=== PATIENT | female | born 1960 | race American Indian/Alaskan Native ===

== ENCOUNTER 2016-09-18 16:58 | Inpatient (IN) | payer MEDICAID ==
--- NOTE | 2016-09-18 17:03 | Emergency Department Report ---
ED Neuro Deficit HPI - General Stated Complaint: POSS STROKE Time Seen by Provider: 09/18/16 16:59 Source: EMS Mode of arrival: Stretcher - History of Present Illness Initial Comments: She is a 56-year-old female with history of hypertension, diabetes, prior CVA? With no known deficits at baseline presenting today because of apparent new stroke symptoms 25 minutes prior to arrival (4:25pm). 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 The fingerstick in the field was in the 90s. It is primarily complaining about a severe headache. - Related Data Home Medications: Home Medications Medication Instructions Recorded Confirmed Last Taken Simvastatin 20 mg PO QDAY 07/15/13 09/21/14 08/02/13 ALBUTEROL NEB's [Proventil 0.083% 1 mg PO BID 08/03/13 09/21/14 08/02/13 NEBS] LORazepam [Ativan] 0.5 mg PO BID 09/23/14 09/23/14 Unknown Previous Rx's Medication Instructions Recorded Last Taken Type Aspirin [Aspirin TAB] 325 mg PO QDAY #30 tablet 09/27/14 Unknown Rx Butalb/Acetamin/Caff 50-325-40 2 tab PO Q4H PRN #30 tablet 09/27/14 Unknown Rx [Fioricet] Divalproex ER [Depakote ER] 500 mg PO QDAY #30 tablet 09/27/14 Unknown Rx predniSONE [Deltasone] 20 mg PO QDAY #5 tab 08/09/15 Unknown Rx traMADol [Ultram] 50 mg PO Q6HR PRN #20 tablet 08/09/15 Unknown Rx Allergies/Adverse Reactions: Allergies Allergy/AdvReac Type Severity Reaction Status Date / Time iodine Allergy Hives Verified 08/03/13 11:52 azithromycin AdvReac Severe ABDOMINAL Verified 08/03/13 11:52 [From Zithromax Z-Mohit] PAIN ED Review of Systems ROS: Stated complaint: POSS STROKE Other details as noted in HPI Comment: All other systems reviewed and negative Constitutional: denies: chills, fever Respiratory: denies: cough Cardiovascular: denies: chest pain Gastrointestinal: denies: abdominal pain, vomiting Genitourinary: denies: urgency, dysuria Skin: denies: rash Psychiatric: denies: anxiety ED Past Medical Hx - Past Medical History Hx Hypertension: Yes Hx Congestive Heart Failure: Yes Hx Diabetes: No ("border-line diabetic") Hx GERD: Yes Hx Sickle Cell Disease: No Hx Arthritis: Yes Hx Asthma: Yes Hx COPD: No Hx HIV: No - Surgical History Hx Coronary Stent: Yes (pt think she has one) Hx Appendectomy: Yes Additional Surgical History: Right pulmonary lobectomy October 2013 - Social History Smoking Status: Former Smoker Substance Use Type: None - Medications Home Medications: Home Medications Medication Instructions Recorded Confirmed Last Taken Type Simvastatin 20 mg PO QDAY 07/15/13 09/21/14 08/02/13 History ALBUTEROL NEB's [Proventil 0.083% 1 mg PO BID 08/03/13 09/21/14 08/02/13 History NEBS] LORazepam [Ativan] 0.5 mg PO BID 09/23/14 09/23/14 Unknown History Aspirin [Aspirin TAB] 325 mg PO QDAY #30 tablet 09/27/14 Unknown Rx Butalb/Acetamin/Caff 50-325-40 2 tab PO Q4H PRN #30 tablet 09/27/14 Unknown Rx [Fioricet] Divalproex ER [Depakote ER] 500 mg PO QDAY #30 tablet 09/27/14 Unknown Rx predniSONE [Deltasone] 20 mg PO QDAY #5 tab 08/09/15 Unknown Rx traMADol [Ultram] 50 mg PO Q6HR PRN #20 tablet 08/09/15 Unknown Rx ED Neuro Physical Exam - General General appearance: alert Suspected Stroke: Yes - Head Head exam: Present: atraumatic - Eye Eye exam: Present: normal appearance Pupils: Present: normal accommodation - ENT ENT exam: Present: normal exam - Neck Neck exam: Present: normal inspection - Respiratory Respiratory exam: Present: normal lung sounds bilaterally. Absent: respiratory distress, wheezes - Cardiovascular Cardiovascular Exam: Present: regular rate, normal rhythm - GI/Abdominal GI/Abdominal exam: Present: soft. Absent: distended, tenderness - Neurological Exam Neurological exam: Present: alert, altered - NIHSS Assessment Interval: Baseline 1a. Level of Consciousness: alert 1b. LOC Questions: answers correctly 1c. LOC Commands: performs tasks correctly 2. Best Gaze: normal 3. Visual: no visual loss 4. Facial Palsy: normal symmetrical movement 5b. Motor Arm Right: no drift 5a. Motor Arm Left: no gravity effort 6a. Motor Leg Left: no gravity effort 6b. Motor Leg Right: no drift 7. Limb Ataxia: absent 8. Sensory: mild/moderate sensory loss 9. Best Language: no aphasia 10. Dysarthria: mild/moderate dysarthria 11. Extinction/Inattention: no abnormality Total Score: 8 Stroke Severity: Moderate Stroke - Psychiatric Psychiatric exam: Present: agitated, anxious - Skin Skin exam: Present: intact ED Course Vital Signs 09/18/16 09/18/16 09/18/16 16:55 17:12 17:30 Pulse Rate Respiratory 22 20 Rate Blood Pressure O2 Sat by Pulse 100 100 Oximetry 09/18/16 09/18/16 09/18/16 18:00 18:01 19:01 Pulse Rate 95 H Respiratory 18 11 L Rate Blood Pressure 149/87 156/83 O2 Sat by Pulse 99 98 Oximetry 09/18/16 09/18/16 19:21 19:57 Pulse Rate 97 H Respiratory 15 18 Rate Blood Pressure 155/82 O2 Sat by Pulse 99 Oximetry - Reevaluation(s) Reevaluation #1: 09/18/16 17:52 I went bed side and reassessed the patient. Sling to the patient that the possibilities here are that she may have a complex migraine or she may have a stroke. Given that it is hard to tell at this point which one it is we want to offer her TPA. I explained to her the benefits which could be that she may have improved neurological status a few months on the line if she receives tPA and I explained to her the of TPA which was primarily a very small chance of a intracranial hemorrhage. Patient states understanding and does not want it. Patient also agrees that these symptoms are similar to her prior presentation. She states that her son had of a stroke alert of the past her birthday at this time of year in the past. Reevaluation #2: 09/18/16 20:08 Dr. Armstrong had requested a CTA of the head and neck. Patient has poor vascular access and this does not have a line is good enough for a CTA. I attempted bedside insertion of an ultrasound guided IV 20-gauge both right and left antecubital fossas, vein is to deep as even cannulation of the vein puts the IVP had a 60 angle from the skin. Unable to secure despite multiple attempts. Pugh is also allergic to contrast dye with prior hives. We will defer CTA at this time as a central line appears to be too invasive considering the risks and benefits. Called Dr. Armstrong and left message at [phone] 09/18/16 20:12 - Consultations Consultation #1: 09/18/16 17:[address] Ayesha Armstrong, discussed patient's presentation and exam. I explained to her the information in the prior records. Dr. Armstrong states patient does not want tPA after having a discussion with the patient. 09/18/16 17:35 Consultation #2: 09/18/16 20:[address] Roberto Mckeon, spleen the history, physical, workup. I explained that there are difficulties with doing a CTA which included the patient being allergic to contrast which we can pretreat but also the patient has poor access and were unable to secure a large enough IV albumin with ultrasound guidance and I would have to insert a central line to be able to get the CTA. We both agreed that this was not necessary given that the patient has elected not to have tPA. - Lab Data Result diagrams: 09/18/16 17:13 09/18/16 17:13 Lab Results 09/18/16 09/18/16 09/18/16 Range/Units 17:13 17:13 17:13 WBC 9.1 (4.5-11.0) K/mm3 RBC 4.73 (3.65-5.03) M/mm3 Hgb 13.2 (10.1-14.3) gm/dl Hct 39.5 (30.3-42.9) % MCV 84 (79-97) fl MCH 28 (28-32) pg MCHC 33 (30-34) % RDW 13.4 (13.2-15.2) % Plt Count 277 (140-440) K/mm3 Lymph % (Auto) 22.2 (13.4-35.0) % [place] % (Auto) 7.7 H (0.0-7.3) % Eos % (Auto) 1.4 (0.0-4.3) % Baso % (Auto) 0.3 (0.0-1.8) % Lymph # 2.0 (1.2-5.4) K/mm3 [place] # 0.7 (0.0-0.8) K/mm3 Eos # 0.1 (0.0-0.4) K/mm3 Baso # 0.0 (0.0-0.1) K/mm3 Seg Neutrophils % 68.4 (40.0-70.0) % Seg Neutrophils # 6.2 (1.8-7.7) K/mm3 PT 14.6 (12.2-14.9) Sec. INR 1.15 H (0.87-1.13) APTT 30.1 (24.2-36.6) Sec. Thrombin Time (15.1-19.6) Sec. Sodium 139 (137-145) mmol/L Potassium 3.4 L (3.6-5.0) mmol/L Chloride 98.2 (98-107) mmol/L Carbon Dioxide 23 (22-30) mmol/L Anion Gap 21 mmol/L BUN 10 (7-17) mg/dL Creatinine 0.6 L (0.7-1.2) mg/dL Estimated GFR > 60 ml/min BUN/Creatinine Ratio 16.66 % Glucose 80 (65-100) mg/dL POC Glucose (70-105) Calcium 9.4 (8.4-10.2) mg/dL Troponin T < 0.010 (0.00-0.029) ng/mL 09/18/16 09/18/16 Range/Units 17:13 17:13 WBC (4.5-11.0) K/mm3 RBC (3.65-5.03) M/mm3 Hgb (10.1-14.3) gm/dl Hct (30.3-42.9) % MCV (79-97) fl MCH (28-32) pg MCHC (30-34) % RDW (13.2-15.2) % Plt Count (140-440) K/mm3 Lymph % (Auto) (13.4-35.0) % [place] % (Auto) (0.0-7.3) % Eos % (Auto) (0.0-4.3) % Baso % (Auto) (0.0-1.8) % Lymph # (1.2-5.4) K/mm3 [place] # (0.0-0.8) K/mm3 Eos # (0.0-0.4) K/mm3 Baso # (0.0-0.1) K/mm3 Seg Neutrophils % (40.0-70.0) % Seg Neutrophils # (1.8-7.7) K/mm3 PT (12.2-14.9) Sec. INR (0.87-1.13) APTT (24.2-36.6) Sec. Thrombin Time 16.1 (15.1-19.6) Sec. Sodium (137-145) mmol/L Potassium (3.6-5.0) mmol/L Chloride (98-107) mmol/L Carbon Dioxide (22-30) mmol/L Anion Gap mmol/L BUN (7-17) mg/dL Creatinine (0.7-1.2) mg/dL Estimated GFR ml/min BUN/Creatinine Ratio % Glucose (65-100) mg/dL POC Glucose 72 (70-105) Calcium (8.4-10.2) mg/dL Troponin T (0.00-0.029) ng/mL - EKG Data -: EKG Interpreted by [place] EKG shows normal: sinus rhythm, ST-T waves (no st changes, t wave nonspecific abnormalities) - Medical Decision Making IV, labs, CT head Exam does appear consistent with neurologic deficits or focal. She is complaining about severe headache is not fit clearly with a non-hemorrhagic stroke. Review of the prior record shows that the patient was hospitalized around 2 years ago with left upper and left lower chin weakness, dysarthria and severe headache and underwent a extensive neuro workup with MRI, MRA which showed no CVA. Been discharged at that time with a diagnosis of migraine and conversion disorder. Critical care attestation.: If time is entered above; I have spent that time in minutes in the direct care of this critically ill patient, excluding procedure time. ED Disposition Clinical Impression: Focal neurological deficit Migraines, neuralgic Qualifiers: Headache chronicity pattern: episodic headache Intractability: intractable Qualified Code(s): G44.011 - Episodic cluster headache, intractable Disposition: OP ADMITTED IP TO THIS HOSP Is pt being admited?: No Does the pt Need Aspirin: No Condition: Serious Referrals: PRIMARY CARE, [Primary Care Provider] - 3-5 Days Time of Disposition: 21:23 (Transitioned care to Dr. Collado)
--- NOTE | 2016-09-18 17:17 | Cat Scan Report ---
FINAL REPORT PROCEDURE: CT HEAD/BRAIN WO CON TECHNIQUE: Computerized tomography of the head was performed without contrast material. HISTORY: neuro deficits < 6hrs or sx present upon awakening COMPARISON: Head CT dated September 21, 2014 FINDINGS: Trace mucosal thickening in the paranasal sinuses is likely within normal limits. Mastoid air cells are clear. No calvarial fracture is seen. Cerebral ventricles normal in size. No acute intracranial hemorrhage or mass effect is seen. No CVA is seen. IMPRESSION: No abnormalities are seen.
[2016-09-18 17:22] LABS: Basophils % (Auto) 0.3 % (0.0-1.8); Eosinophils % (Auto) 1.4 % (0.0-4.3); Hematocrit 39.5 % (30.3-42.9); Hemoglobin 13.2 gm/dl (10.1-14.3); Mean Corpuscular HGB Conc 33 % (30-34); Mean Corpuscular Hemoglobin 28 pg (28-32); Mean Corpuscular Volume 84 fl (79-97); Platelet Count 277 K/mm3 (140-440); Red Blood Count 4.73 M/mm3 (3.65-5.03); Red Cell Distribution Width 13.4 % (13.2-15.2); White Blood Count 9.1 K/mm3 (4.5-11.0)
--- NOTE | 2016-09-18 17:28 | Admit Criteria Form ---
Admission Criteria Documentation: STROKE: ISCHEMIC Clinical Indications for Admission to Inpatient Care (Place 'X' for any and all applicable criteria): Admission is indicated for ANY ONE of the following(1)(2)(3)(4): [ X]I. Acute stroke Extended stay beyond goal length of stay may be needed for(1)(2) [ ]a) Major deficit or clinical deterioration [ ]b) Hospital-acquired infection (eg, urinary tract infection, pneumonia) [ ]c) Embolic cause of stroke [ ]d) Venous thromboembolism(9) [ ]e) Seizures [ ]f) Bleeding (eg, cerebral) [ ]g) Increased intracranial pressure [ ]h) Comorbidities [ ]i) Surgical intervention The original [facility] content created by [employer] has been revised. The portions of the content which have been revised are identified through the use of italic text or in bold, and [facility] has neither reviewed nor approved the modified material. All other unmodified content is copyright [facility]. Please see references footnoted in the original [facility] edition 2016 Admission Criteria Met: Yes
[2016-09-18 17:35] LABS: INR 1.15 (0.87-1.13)
[2016-09-18 17:36] LABS: Partial Thromboplastin Time 30.1 Sec. (24.2-36.6)
[2016-09-18] MEDS ORDERED: MORPHINE IV ONE ×2 (17:37→19:50)
[2016-09-18 17:44] LABS: BUN/Creatinine Ratio 16.66; Blood Urea Nitrogen 10 mg/dL (7-17); Calcium 9.4 mg/dL (8.4-10.2); Carbon Dioxide 23 mmol/L (22-30); Chloride 98.2 mmol/L (98-107); Glucose 80 mg/dL (65-100); Potassium 3.4 mmol/L (3.6-5.0); Sodium 139 mmol/L (137-145)
[2016-09-18 17:45] LABS: Anion Gap 21 mmol/L
[2016-09-18] MEDS ORDERED: ZOFRAN IV ONE (17:54)
[2016-09-18] MEDS ORDERED: NACL ONE (18:15)
[2016-09-18] MEDS ORDERED: BENADRYL IV ONE (18:56)
[2016-09-18] MEDS ORDERED: ASPIRIN PR ONE (20:24)
[2016-09-19] MEDS ORDERED: APRESOLINE IV PRN (01:41)
[2016-09-19] MEDS ORDERED: MILK OF MAGNESIA PO PRN (01:41)
[2016-09-19] MEDS ORDERED: SODIUM CHLORIDE FLUSH SYRINGE 10 ML IV PRN (01:41)
[2016-09-19] MEDS ORDERED: ZOFRAN IV PRN (01:41)
[2016-09-19] MEDS ORDERED: DULCOLAX PR PRN (01:41)
[2016-09-19] MEDS ORDERED: TYLENOL PO PRN (01:41)
[2016-09-19] MEDS: MORPHINE IV PRN ×2 (02:27→13:00)
--- NOTE | 2016-09-19 04:09 | History and Physical Report ---
History of Present Illness Date of examination: 09/18/16 Date of admission: 09/18/16 22:19 History of present illness: 56-year-old woman with a history of migraine, remote history of lung cancer comes emergency room with complaints of left-sided weakness, dysarthria and headache. Headache is in the left frontal temporal area which she describes as a throbbing pain, constant, radiating to the sides of the head, intensity7/10, she cannot identify exacerbating or relieving factors. Patient was offered TPA , she refused Patient denies chest pain, palpitation, shortness of breath, cough, abdominal pain, hematochezia, dysuria, frequency, fever chills, polydipsia polyuria, hot or cold intolerance, easy bruisability, or rash or bleeding from mucosal membrane, rhinorrhea, epistaxis, earache, tinnitus, blurry vision, eye discharge , anxiety, depression. Other review of systems negative PAST SURGICAL HISTORY: Hysterectomy. Appendectomy, 4, lobectomy, rotator cuff SOCIAL HISTORY: Denies alcohol, tobacco, drugs FAMILY HISTORY: Hypertension Medications and Allergies Allergies Allergy/AdvReac Type Severity Reaction Status Date / Time iodine Allergy Hives Verified 08/03/13 11:52 azithromycin AdvReac Severe ABDOMINAL Verified 08/03/13 11:52 [From Zithromax Z-Mohit] PAIN Home Medications Medication Instructions Recorded Confirmed Last Taken Type Aspirin [Aspirin TAB] 325 mg PO QDAY #30 tablet 09/20/16 Unknown Rx Butalb/Acetamin/Caff 50-325-40 1 tab PO Q8HR PRN #10 tablet 09/20/16 Unknown Rx [Fioricet] Simvastatin [Zocor TAB] 20 mg PO QHS #30 tablet 09/20/16 Unknown Rx Active Meds: Active Medications Acetaminophen (Tylenol) 650 mg PO Q4H PRN PRN Reason: Pain, Mild (1-3) Aspirin (Aspirin) 325 mg PO QDAY JAN Bisacodyl (Dulcolax) 10 mg TX QDAY PRN PRN Reason: Constipation Enoxaparin Sodium (Lovenox) 40 mg SUB-Q QDAY JAN Hydralazine HCl (Apresoline) 5 mg IV Q6H PRN PRN Reason: Keep SBP between 160-185 mm Hg Magnesium Hydroxide (Milk Of Magnesia) 30 ml PO Q4H PRN PRN Reason: Constipation Morphine Sulfate (Morphine) 2 mg IV Q4H PRN PRN Reason: Pain, Moderate (4-6) Last Admin: 09/19/16 02:27 Dose: 2 mg Ondansetron HCl (Zofran) 4 mg IV Q8H PRN PRN Reason: N/V unrelieved by Reglan Last Admin: 09/19/16 02:27 Dose: 4 mg Simvastatin (Zocor) 20 mg PO QHS JAN Sodium Chloride (Sodium Chloride Flush Syringe 10 Ml) 10 ml IV PRN PRN PRN Reason: LINE FLUSH Exam - Physical Exam Narrative exam: Gen. appearance: Patient lying in bed, no apparent distress HEENT: Normocephalic, atraumatic, pupils equally round and reactive to light, extraocular movement intact, and no sclericterus,. No JVD or thyromegaly or nodule,neck supple, no carotid bruit ,mucous membranes moist, no exudate or erythema Heart: S1, S2, regular rate and rhythm Lungs: Clear to auscultation bilaterally, breathing comfortable Abdomen: Positive bowel sounds, nontender, nondistended, no organomegaly Extremity: No edema, cyanosis, clubbing Skin: No rash, nodules, warm, dry Neuro: Oriented 3, cranial nerves II-12 intact, speech is fluent, poor effort for motor and sensory intact - Constitutional Vitals: Temp Pulse Resp BP Pulse Ox 90 20 140/80 97 09/19/16 02:11 09/19/16 02:27 09/19/16 00:00 09/19/16 02:11 Results - Labs CBC & Chem 7: 09/18/16 17:13 09/18/16 17:13 - Imaging and Cardiology EKG: image reviewed CT Scan - head: report reviewed Assessment and Plan Complicated migraine versus CVA Acute on chronic migraine History of lung cancer Admits medicine Obtain MRI of the head, do neurochecks Start IV morphine, consult neurology Starrt DVT prophylaxis
--- NOTE | 2016-09-19 06:16 | Consultation ---
This is a 56-year-old black female that presents 911 call through [facility]. EMS was summoned to the office of Dr. Ricardo Sims of Pulmonary. 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 Apparently, while walking to the front sight attacher, she collapsed. At that point, she was alert, but complaining of severe left-sided headache. She was transported to [facility] as a stroke alert. After arrival here, I saw the patient in the CT scan suite as portion of the stroke alert. At that point, the patient was fully conscious, was moving her left and right legs, had demonstrable weakness of her left arm. She moved her right arm well. She is describing that she had a headache of her left side, which was particularly severe, which she did not admit to having previously. Family members are not present to obtain a cross history from or no noted allergies. The patient has no evidence of any cranial trauma. On examination, her face is symmetrical. Her neck is supple. She has weakness of her entire left arm, not the leg either right or left. She does not have any facial weakness. I reviewed the CT scan of the head off the scanner monitor. It is essentially unremarkable. Although the patient was stated to have had a prior history of stroke, I do not see any evidence of any martinez or white matter lesions. My recommendation at this point is to put her through stroke scale evaluation for potential TPA. At this point, I do not see the evidence of the prior CT scan and I mentioned to the ED physician, I do not see any evidence of bleed. At this point subarachnoid, intracranial, or any mass lesion that would account for the patient's sudden on onset of headache. Obviously obtaining the old history from the chart will be essential in order to plan further evaluation and treatment of the patient. At this point, blood pressure needs to be checked as well as all laboratories. This is in the preliminary stages of being collected. JOB# [id number] JESSI/KINGSTON
[2016-09-19] MEDS: ASPIRIN PO SCH (09:41)
[2016-09-19] MEDS: LOVENOX SUB-Q SCH (09:41)
[2016-09-19] MEDS ORDERED: ATIVAN IV ONE (10:30)
--- NOTE | 2016-09-19 11:54 | Magnetic Resonance Report ---
MRI BRAIN WITHOUT CONTRAST INDICATION: Stroke. COMPARISON: 09/22/2014 brain MRI and a head CT from last evening. FINDINGS: Noncontrast multiplanar and multisequence MRI of the brain demonstrates normal ventricles and sulci without acute infarct, hemorrhage, mass effect or midline shift. Minimal, benign bilateral basal ganglia calcifications. No abnormal extra-axial masses or fluid collections. Normal major intracranial vascular flow voids. Normal posterior fossa structures with symmetric seventh and eighth nerve complexes. Symmetric, grossly unremarkable eye globes. Clear paranasal sinuses and left mastoid air cells. Slight right mastoiditis may again be present. Normal midline structures without evidence of Chiari malformation. CONCLUSION: No acute intracranial MRI abnormality, as described. Thank you for the opportunity to participate in this patient's care.
[2016-09-19] MEDS: ZOCOR PO SCH (22:09)
[2016-09-20] MEDS: MORPHINE IV PRN ×3 (00:14→17:19)
[2016-09-20] MEDS: LOVENOX SUB-Q SCH (10:20)
[2016-09-20] MEDS: ASPIRIN PO SCH (10:20)
--- NOTE | 2016-09-20 11:42 | Discharge Summary ---
Providers - Providers Date of Admission: 09/18/16 22:19 Attending physician: IVY SONG Primary care physician: LIQUEFIED PETROLEUM GASFITTER Hospitalization Condition: Serious Disposition: STILL A PATIENT Exam - Constitutional Vitals: Temp Pulse Resp BP Pulse Ox 98.1 F 76 20 127/73 96 09/20/16 11:03 09/20/16 11:03 09/20/16 11:03 09/20/16 11:03 09/20/16 11:03 Plan Follow up with: PRIMARY CAREMD [Primary Care Provider] - 3-5 Days Prescriptions: Aspirin [Aspirin TAB] 325 mg PO QDAY #30 tablet Butalb/Acetamin/Caff 50-325-40 [Fioricet] 1 tab PO Q8HR PRN #10 tablet PRN Reason: Headache Simvastatin [Zocor TAB] 20 mg PO QHS #30 tablet
[2016-09-20] MEDS ORDERED: FIORICET PO PRN (17:20)
[2016-09-20] MEDS: ZOCOR PO SCH (22:42)
--- NOTE | 2016-09-21 08:08 | Progress Note ---
Assessment and Plan - Patient Problems (1) CVA (cerebral infarction) Current Visit: No Status: Acute Plan to address problem: stroke protocol, supportive care, Acute rehab consulted. (2) Focal neurological deficit Current Visit: Yes Status: Acute Plan to address problem: secondary to CVA versus complicated migraine. (3) Migraines, neuralgic Current Visit: Yes Status: Acute Qualifiers: Headache chronicity pattern: episodic headache Intractability: intractable Qualified Code(s): G44.011 - Episodic cluster headache, intractable Plan to address problem: continue current therapy (4) DVT prophylaxis Current Visit: No Status: Acute History Interval history: Pt lying in bed, NO reported nursing events. Hospitalist Physical - Constitutional Vitals: Temp Pulse Resp BP Pulse Ox 97.9 F 80 20 127/58 97 09/21/16 07:20 09/21/16 07:20 09/21/16 07:20 09/21/16 07:20 09/21/16 07:20 General appearance: Present: no acute distress - EENT Eyes: Present: PERRL, EOM intact ENT: hearing intact - Neck Neck: Present: supple - Respiratory Respiratory: bilateral: CTA - Cardiovascular Rhythm: regular Heart Sounds: Present: S1 & S2 - Extremities Extremities: no ischemia Peripheral Pulses: within normal limits - Abdominal General gastrointestinal: soft, non-tender, non-distended - Integumentary Integumentary: Present: clear, dry - Psychiatric Psychiatric: appropriate mood/affect, cooperative - Neurologic Neurologic: focal deficits, no moves all extremities Results - Labs CBC & Chem 7: 09/18/16 17:13 09/18/16 17:13 Labs: Laboratory Last Values WBC 9.1 K/mm3 (4.5-11.0) 09/18/16 17:13 RBC 4.73 M/mm3 (3.65-5.03) 09/18/16 17:13 Hgb 13.2 gm/dl (10.1-14.3) 09/18/16 17:13 Hct 39.5 % (30.3-42.9) 09/18/16 17:13 MCV 84 fl (79-97) 09/18/16 17:13 MCH 28 pg (28-32) 09/18/16 17:13 MCHC 33 % (30-34) 09/18/16 17:13 RDW 13.4 % (13.2-15.2) 09/18/16 17:13 Plt Count 277 K/mm3 (140-440) 09/18/16 17:13 Lymph % (Auto) 22.2 % (13.4-35.0) 09/18/16 17:13 [place] % (Auto) 7.7 % (0.0-7.3) H 09/18/16 17:13 Eos % (Auto) 1.4 % (0.0-4.3) 09/18/16 17:13 Baso % (Auto) 0.3 % (0.0-1.8) 09/18/16 17:13 Lymph # 2.0 K/mm3 (1.2-5.4) 09/18/16 17:13 [place] # 0.7 K/mm3 (0.0-0.8) 09/18/16 17:13 Eos # 0.1 K/mm3 (0.0-0.4) 09/18/16 17:13 Baso # 0.0 K/mm3 (0.0-0.1) 09/18/16 17:13 Seg Neutrophils % 68.4 % (40.0-70.0) 09/18/16 17:13 Seg Neutrophils # 6.2 K/mm3 (1.8-7.7) 09/18/16 17:13 PT 14.6 Sec. (12.2-14.9) 09/18/16 17:13 INR 1.15 (0.87-1.13) H 09/18/16 17:13 APTT 30.1 Sec. (24.2-36.6) 09/18/16 17:13 Thrombin Time 16.1 Sec. (15.1-19.6) 09/18/16 17:13 Sodium 139 mmol/L (137-145) 09/18/16 17:13 Potassium 3.4 mmol/L (3.6-5.0) L 09/18/16 17:13 Chloride 98.2 mmol/L (98-107) 09/18/16 17:13 Carbon Dioxide 23 mmol/L (22-30) 09/18/16 17:13 Anion Gap 21 mmol/L 09/18/16 17:13 BUN 10 mg/dL (7-17) 09/18/16 17:13 Creatinine 0.6 mg/dL (0.7-1.2) L 09/18/16 17:13 Estimated GFR > 60 ml/min 09/18/16 17:13 BUN/Creatinine Ratio 16.66 % 09/18/16 17:13 Glucose 80 mg/dL (65-100) 09/18/16 17:13 POC Glucose 97 (70-105) 09/20/16 15:51 Calcium 9.4 mg/dL (8.4-10.2) 09/18/16 17:13 Troponin T < 0.010 ng/mL (0.00-0.029) 09/18/16 17:13 Triglycerides 54 mg/dL (2-149) 09/19/16 06:34 Cholesterol 196 mg/dL (50-199) 09/19/16 06:34 LDL Cholesterol Direct 129 mg/dL (50-130) 09/19/16 06:34 HDL Cholesterol 57 mg/dL (40-59) 09/19/16 06:34 Cholesterol/HDL Ratio 3.43 % 09/19/16 06:34
--- NOTE | 2016-09-21 09:39 | Consultation ---
History of Present Illness - Reason for Consult Consult date: 09/21/16 Evaluate for Acute IRU - History of Present Illness 56 y.o. female admitted secondary to acute onset of worsening right frontal headache and left sided weakness. CT Brain negative; no tPA given. Follow-up Brain MRI also negative. Pt has a history of migraines; ongoing left sided weakness thought to be secondary to complex migraine. Pt denies any chronic medications for treatment of migraines; reports history of depression. On today , pt reports some improvement in left sided weakness. Consult requested for post acute placement recommendations. Past History Past Medical History: cancer (lung) Past Surgical History: appendectomy, (x4), hysterectomy, tonsillectomy , Other (lung resection; bilateral rotator cuff repairs; lumpectomy) Social history: lives with family. denies: smoking (former) Family history: CAD, cancer, diabetes, hypertension, other (TIA) Medications and Allergies Allergies Allergy/AdvReac Type Severity Reaction Status Date / Time iodine Allergy Hives Verified 08/03/13 11:52 azithromycin AdvReac Severe ABDOMINAL Verified 08/03/13 11:52 [From Zithromax Z-Mohit] PAIN Home Medications Medication Instructions Recorded Confirmed Last Taken Type Aspirin [Aspirin TAB] 325 mg PO QDAY #30 tablet 09/20/16 Unknown Rx Butalb/Acetamin/Caff 50-325-40 1 tab PO Q8HR PRN #10 tablet 09/20/16 Unknown Rx [Fioricet] Simvastatin [Zocor TAB] 20 mg PO QHS #30 tablet 09/20/16 Unknown Rx Active Meds: Active Medications Acetaminophen (Tylenol) 650 mg PO Q4H PRN PRN Reason: Pain, Mild (1-3) Acetaminophen/Butalbital/Caffeine (Fioricet) 1 tab PO Q4H PRN PRN Reason: Headache Last Admin: 09/20/16 22:43 Dose: 1 tab Aspirin (Aspirin) 325 mg PO QDAY COUNTS INCLUDE 234 BEDS AT THE [facility] Last Admin: 09/20/16 10:20 Dose: 325 mg Bisacodyl (Dulcolax) 10 mg ND QDAY PRN PRN Reason: Constipation Enoxaparin Sodium (Lovenox) 40 mg SUB-Q QDAY COUNTS INCLUDE 234 BEDS AT THE [facility] Last Admin: 09/20/16 10:20 Dose: 40 mg Hydralazine HCl (Apresoline) 5 mg IV Q6H PRN PRN Reason: Keep SBP between 160-185 mm Hg Magnesium Hydroxide (Milk Of Magnesia) 30 ml PO Q4H PRN PRN Reason: Constipation Morphine Sulfate (Morphine) 2 mg IV Q4H PRN PRN Reason: Pain, Moderate (4-6) Last Admin: 09/20/16 17:19 Dose: 2 mg Ondansetron HCl (Zofran) 4 mg IV Q8H PRN PRN Reason: N/V unrelieved by Reglan Last Admin: 09/19/16 02:27 Dose: 4 mg Simvastatin (Zocor) 20 mg PO QHS JAN Last Admin: 09/20/16 22:42 Dose: 20 mg Sodium Chloride (Sodium Chloride Flush Syringe 10 Ml) 10 ml IV PRN PRN PRN Reason: LINE FLUSH Review of Systems All systems: negative Ears, nose, mouth and throat: headache (intermittent) Cardiovascular: lightheadedness, no chest pain Respiratory: no cough Gastrointestinal: constipation, no nausea, no vomiting Genitourinary Female: other (+wooten) Musculoskeletal: gait dysfunction Neurological: weakness, numbness Exam - Constitutional Vitals: Vital Signs - 12hr 09/20/16 09/20/16 09/21/16 22:00 23:53 07:20 Temperature 98.0 F 97.9 F Pulse Rate 76 Pulse Rate [ 85 80 Right Radial] Respiratory 20 20 Rate Blood Pressure 115/59 127/58 [Right Radial Artery] O2 Sat by Pulse 99 95 97 Oximetry General appearance: no acute distress, obese - EENT Eyes: EOM intact ENT: hearing intact - Neck Neck: supple, normal ROM - Respiratory Respiratory effort: normal Respiratory: bilateral: CTA - Cardiovascular Rhythm: regular Heart Sounds: Present: S1 & S2 - Extremities Extremities: No edema - Gastrointestinal General gastrointestinal: Present: soft, non-tender, non-distended, normal bowel sounds - Integumentary Integumentary: Present: clear - Musculoskeletal Musculoskeletal: left sided weakness (2/5 left extremities) - Neurologic Neurologic: CNII-XII intact, other (decreased sensation on left) - Psychiatric Psychiatric: appropriate mood/affect, intact judgment & insight, memory intact, cooperative - Allied health notes Allied health notes reviewed: PT (min-modA for transfers; Mable for gait), ST ( memory deficits noted on evaluation), OT (totalA fro LB dressing) FIMS assesment as documented by PT/OT/ST: Locomotion- walk/wheelchair Ambulation Distance 25 - Labs CBC & Chem 7: 09/18/16 17:13 09/18/16 17:13 Labs: Laboratory Results - last 72 hr 09/19/16 09/20/16 06:34 15:51 POC Glucose 97 Triglycerides 54 Cholesterol 196 LDL Cholesterol Direct 129 HDL Cholesterol 57 Cholesterol/HDL Ratio 3.43 Assessment and Plan Patient was assessed and evaluated for Acute Inpatient Rehab Unit. 56 y.o. left handed female with acute left sided hemiparesis and associated headache; work-up negative for CVA; symptoms thought to be secondary to complex migraine. Pt may benefit from Neurology consult for ongoing management of migraines. Pt is noted to have ongoing left sided weakness and functional deficits resulting from acute migraine. Rehab options discussed with patient in detail on today. Pt may benefit from IRU admission to improve functional independence. Pt to discuss with family; tentative admission on tomorrow if deficits noted to be ongoing. Will continue to follow. Thank you for consultation. - Patient Problems (1) Migraines, neuralgic Current Visit: Yes Status: Acute Qualifiers: Headache chronicity pattern: episodic headache Intractability: intractable Qualified Code(s): G44.011 - Episodic cluster headache, intractable (2) Left hemiparesis Current Visit: Yes Status: Acute (3) Neurologic gait dysfunction Current Visit: Yes Status: Acute
[2016-09-21] MEDS: LOVENOX SUB-Q SCH (10:41)
[2016-09-21] MEDS: ASPIRIN PO SCH (10:42)
[2016-09-21] MEDS: MORPHINE IV PRN ×2 (10:47→21:32)
[2016-09-21 18:07] LABS: Bacteria,Urine 2+ /HPF (Negative); Bilirubin,Urine NEG (Negative); Blood,Urine LG (Negative); Ketones,Urine NEG (Negative); Leukocyte Esterase,Urine LG (Negative); Mucus,Urine 1+ /HPF; Nitrite,Urine POS (Negative); Urobilinogen,Urine < 2.0 mg/dL (<2.0)
--- NOTE | 2016-09-21 19:18 | Progress Note ---
Assessment and Plan - Patient Problems (1) CVA (cerebral infarction) Current Visit: No Status: Acute Plan to address problem: stroke protocol, supportive care, Acute rehab consulted. (2) Focal neurological deficit Current Visit: Yes Status: Acute Plan to address problem: secondary to CVA versus complicated migraine. (3) Migraines, neuralgic Current Visit: Yes Status: Acute Qualifiers: Headache chronicity pattern: episodic headache Intractability: intractable Qualified Code(s): G44.011 - Episodic cluster headache, intractable Plan to address problem: continue current therapy (4) DVT prophylaxis Current Visit: No Status: Acute History Interval history: Pt lying in bed, NO reported nursing events. Hospitalist Physical - Constitutional Vitals: Temp Pulse Resp BP Pulse Ox 97.9 F 83 20 147/73 96 09/21/16 17:31 09/21/16 17:31 09/21/16 17:31 09/21/16 17:31 09/21/16 17:31 General appearance: Present: no acute distress, obese - EENT Eyes: Present: PERRL, EOM intact ENT: hearing intact - Neck Neck: Present: supple - Respiratory Respiratory effort: normal Respiratory: bilateral: diminished - Cardiovascular Rhythm: regular Heart Sounds: Present: S1 & S2 - Extremities Extremities: abnormal Peripheral Pulses: within normal limits - Abdominal General gastrointestinal: soft, non-tender, non-distended - Integumentary Integumentary: Present: clear, dry - Psychiatric Psychiatric: appropriate mood/affect, cooperative - Neurologic Neurologic: focal deficits, no moves all extremities, no gait normal Results - Labs CBC & Chem 7: 09/18/16 17:13 09/18/16 17:13 Labs: Laboratory Last Values WBC 9.1 K/mm3 (4.5-11.0) 09/18/16 17:13 RBC 4.73 M/mm3 (3.65-5.03) 09/18/16 17:13 Hgb 13.2 gm/dl (10.1-14.3) 09/18/16 17:13 Hct 39.5 % (30.3-42.9) 09/18/16 17:13 MCV 84 fl (79-97) 09/18/16 17:13 MCH 28 pg (28-32) 09/18/16 17:13 MCHC 33 % (30-34) 09/18/16 17:13 RDW 13.4 % (13.2-15.2) 09/18/16 17:13 Plt Count 277 K/mm3 (140-440) 09/18/16 17:13 Lymph % (Auto) 22.2 % (13.4-35.0) 09/18/16 17:13 [place] % (Auto) 7.7 % (0.0-7.3) H 09/18/16 17:13 Eos % (Auto) 1.4 % (0.0-4.3) 09/18/16 17:13 Baso % (Auto) 0.3 % (0.0-1.8) 09/18/16 17:13 Lymph # 2.0 K/mm3 (1.2-5.4) 09/18/16 17:13 [place] # 0.7 K/mm3 (0.0-0.8) 09/18/16 17:13 Eos # 0.1 K/mm3 (0.0-0.4) 09/18/16 17:13 Baso # 0.0 K/mm3 (0.0-0.1) 09/18/16 17:13 Seg Neutrophils % 68.4 % (40.0-70.0) 09/18/16 17:13 Seg Neutrophils # 6.2 K/mm3 (1.8-7.7) 09/18/16 17:13 PT 14.6 Sec. (12.2-14.9) 09/18/16 17:13 INR 1.15 (0.87-1.13) H 09/18/16 17:13 APTT 30.1 Sec. (24.2-36.6) 09/18/16 17:13 Thrombin Time 16.1 Sec. (15.1-19.6) 09/18/16 17:13 Sodium 139 mmol/L (137-145) 09/18/16 17:13 Potassium 3.4 mmol/L (3.6-5.0) L 09/18/16 17:13 Chloride 98.2 mmol/L (98-107) 09/18/16 17:13 Carbon Dioxide 23 mmol/L (22-30) 09/18/16 17:13 Anion Gap 21 mmol/L 09/18/16 17:13 BUN 10 mg/dL (7-17) 09/18/16 17:13 Creatinine 0.6 mg/dL (0.7-1.2) L 09/18/16 17:13 Estimated GFR > 60 ml/min 09/18/16 17:13 BUN/Creatinine Ratio 16.66 % 09/18/16 17:13 Glucose 80 mg/dL (65-100) 09/18/16 17:13 POC Glucose 97 (70-105) 09/20/16 15:51 Calcium 9.4 mg/dL (8.4-10.2) 09/18/16 17:13 Troponin T < 0.010 ng/mL (0.00-0.029) 09/18/16 17:13 Triglycerides 54 mg/dL (2-149) 09/19/16 06:34 Cholesterol 196 mg/dL (50-199) 09/19/16 06:34 LDL Cholesterol Direct 129 mg/dL (50-130) 09/19/16 06:34 HDL Cholesterol 57 mg/dL (40-59) 09/19/16 06:34 Cholesterol/HDL Ratio 3.43 % 09/19/16 06:34 Urine Color Yellow (Yellow) 09/21/16 17:40 Urine Turbidity Slightly-cloudy (Clear) 09/21/16 17:40 Urine pH 5.0 (5.0-7.0) 09/21/16 17:40 Ur Specific [place] 1.021 (1.003-1.030) 09/21/16 17:40 Urine Protein 30 mg/dl mg/dL (Negative) 09/21/16 17:40 Urine Glucose (UA) Neg mg/dL (Negative) 09/21/16 17:40 Urine Ketones Neg mg/dL (Negative) 09/21/16 17:40 Urine Blood Lg (Negative) 09/21/16 17:40 Urine Nitrite Pos (Negative) 09/21/16 17:40 Urine Bilirubin Neg (Negative) 09/21/16 17:40 Urine Urobilinogen < 2.0 mg/dL (<2.0) 09/21/16 17:40 Ur Leukocyte Esterase Lg (Negative) 09/21/16 17:40 Urine WBC (Auto) 98.0 /HPF (0.0-6.0) H 09/21/16 17:40 Urine RBC (Auto) 102.0 /HPF (0.0-6.0) 09/21/16 17:40 U Epithel Cells (Auto) 1.0 /HPF (0-13.0) 09/21/16 17:40 Urine Bacteria (Auto) 2+ /HPF (Negative) 09/21/16 17:40 Urine Mucus 1+ /HPF 09/21/16 17:40
[2016-09-21] MEDS ORDERED: XYLOCAINE 1% MPF 5 mL INFILTRATI ONE (21:07)
[2016-09-21] MEDS: ZOCOR PO SCH (21:32)
[2016-09-21] MEDS ORDERED: ROCEPHIN/NS 1 GM/50 ML 50 ML IV SCH (22:00)
[2016-09-22] MEDS ORDERED: PERCOCET 5/325 PO PRN (08:30)
[2016-09-22] MEDS ORDERED: ROCEPHIN/NS 1 GM/50 ML 50 ML IV SCH (10:00)
[2016-09-22] MEDS ORDERED: ROCEPHIN IV SCH (10:00)
[2016-09-22] MEDS ORDERED: CEPHULAC PO SCH (10:00)
[2016-09-22] MEDS: ASPIRIN PO SCH (12:10)
[2016-09-22] MEDS: LOVENOX SUB-Q SCH (12:11)
--- NOTE | 2016-09-22 12:42 | Discharge Summary ---
Providers - Providers Date of Admission: 09/18/16 22:19 Attending physician: IVY SONG 09/20/16 16:24 Consult Acute Rehabilitation [CONS] Routine Consulting Provider: BRITNEY VITAL Reason For Exam: weakness Primary care physician: REPROGRAPHICS TECHNICIAN Hospitalization Condition: Serious Hospital course: 56 YO Female admitted for Acute CVA. Pt treated IAW stroke protocol. Pt symptoms stabilized with supportive care. Pt treated with anti platelet therapy. Pt convalesced well during hospital course. Pt found to have Left hemiparesis on admission. PT consulted, Pt symptoms stabilized with supportive therapy. Pt medically optimized . Pt evaluated prior to discharge but no significant new physical exam findings since admission. Acute rehab team consulted and patient discharged to [facility], 35 minutes dedicated to patient discharge and education. Pt counseled regarding balanced diet, and increased physical activity. Disposition: DC/TX INPT REHAB FACILITY - Discharge Diagnoses (1) CVA (cerebral infarction) Status: Acute (2) Focal neurological deficit Status: Acute (3) Migraines, neuralgic Status: Acute Qualifiers: Headache chronicity pattern: episodic headache Intractability: intractable Qualified Code(s): G44.011 - Episodic cluster headache, intractable (4) DVT prophylaxis Status: Acute Core Measure Documentation - Palliative Care Palliative Care/ Comfort Measures: Not Applicable - Core Measures Any of the following diagnoses?: stroke - Stroke Discharge Requirements Statin for LDL = or >70 mg/dl on DC: Yes Anticoag for atrial fib/atrial flutter: Not Applicable Antithrombotic for ischemic stroke: Yes Exam - Constitutional Vitals: Temp Pulse Resp BP Pulse Ox 97.2 F L 80 20 116/62 96 09/22/16 07:00 09/22/16 07:00 09/22/16 07:00 09/22/16 07:00 09/22/16 07:00 General appearance: Present: no acute distress, well-nourished - EENT Eyes: Present: PERRL ENT: hearing intact, clear oral mucosa - Neck Neck: Present: supple, normal ROM - Respiratory Respiratory effort: normal Respiratory: bilateral: CTA - Cardiovascular Heart Sounds: Present: S1 & S2. Absent: rub, click - Extremities Extremities: pulses symmetrical, No edema Peripheral Pulses: within normal limits - Abdominal General gastrointestinal: Present: soft, non-tender, non-distended, normal bowel sounds Female genitourinary: Present: normal - Integumentary Integumentary: Present: clear, warm, dry - Musculoskeletal Musculoskeletal: left sided weakness - Psychiatric Psychiatric: appropriate mood/affect, intact judgment & insight - Neurologic Neurologic: CNII-XII intact, moves all extremities Plan Activity: advance as tolerated Diet: low fat, low cholesterol Follow up with: PRIMARY CARE, [Primary Care Provider] - 3-5 Days Prescriptions: Aspirin [Aspirin TAB] 325 mg PO QDAY #30 tablet Butalb/Acetamin/Caff 50-325-40 [Fioricet] 1 tab PO Q8HR PRN #10 tablet PRN Reason: Headache Simvastatin [Zocor TAB] 20 mg PO QHS #30 tablet
[2016-09-22 13:33] VITALS: BP 176/96
--- NOTE | 2016-09-22 15:43 | Event Note ---
Date: 09/22/16 IPR F/U, complex migraines. left hemiparesis. Pt is seen on this afternoon, sitting up in chair; continues with left sided weakness, however, improved. Ongoing functional needs are noted; APARTMENT HOUSE MANAGER and OT notes reviewed. Pt for IRU admission on today.
== END 2016-09-22 16:51 | DRG 65 ==
LOC: ED 16:58 → 4A 22:19
PROVIDERS: ADMIT Internal Medicine; ATTEND Internal Medicine
DX: I63.9 Cerebral infarction, unspecified (principal); G81.94 Hemiplegia, unspecified affecting left nondominant side; I50.9 Heart failure, unspecified; I11.0 Hypertensive heart disease with heart failure; K21.9 Gastro-esophageal reflux disease without esophagitis; M19.90 Unspecified osteoarthritis, unspecified site; J45.909 Unspecified asthma, uncomplicated; R47.1 Dysarthria and anarthria; G43.809 Other migraine, not intractable, without status migrainosus; R26.89 Other abnormalities of gait and mobility; R29.708 NIHSS score 8; Z88.1 Allergy status to other antibiotic agents; Z88.8 Allergy status to other drugs, medicaments and biological substances; Z79.899 Other long term (current) drug therapy; Z95.5 Presence of coronary angioplasty implant and graft; Z90.49 Acquired absence of other specified parts of digestive tract; Z98.890 Other specified postprocedural states; Z87.891 Personal history of nicotine dependence; Z79.82 Long term (current) use of aspirin; Z85.118 Personal history of other malignant neoplasm of bronchus and lung; Z90.710 Acquired absence of both cervix and uterus; Z82.49 Family history of ischemic heart disease and other diseases of the circulatory system; Z83.3 Family history of diabetes mellitus; Z82.3 Family history of stroke
CPT/HCPCS: 36415; 51702; 70450; 70551; 80048; 80061; 81001; 82962; 84484; 85025; 85610; 85670; 85730; 93005; 93010; 96374; 96375; 96376; J0696; J1200; J1650; J1720; J2060; J2270; J2405

== ENCOUNTER 2016-09-22 16:50 | Inpatient (IN) | payer MEDICAID ==
[2016-09-22] MEDS ORDERED: TYLENOL PO PRN (17:53)
[2016-09-22] MEDS ORDERED: SENOKOT PO PRN (17:53)
[2016-09-22] MEDS ORDERED: MILK OF MAGNESIA PO PRN (17:53)
[2016-09-22] MEDS ORDERED: FIORICET PO PRN (17:57)
--- NOTE | 2016-09-22 18:44 | History and Physical Report ---
History of Present Illness Date: 09/22/16 Referring Facility: [facility] Date of admission: 09/22/16 16:50 Chief Complaint: complex migraines History of present illness: POST ADMISSION PHYSICIAN EVALUATION ONSET DATE: 09/18/2016 IMPAIRMENT GROUP CODE: 03.9 ETIOLOGIC DIAGNOSIS: complex migraines with left hemiparesis STATUS CHANGES SINCE PREADMISSION SCREENING: PAS has been reviewed. In comparison, pt noted to have elevated BP over last 24 hours. Will need to follow closely as pt was not on anti-hypertensives at home. Pt continues to report intermittent headaches; reports this as cause for intermittent hypertension as well. Left sided weakness is ongoing; continues with functional deficits and remains an appropriate candidate for IRU. PREVIOUS FUNCTIONAL STATUS: Independent with ADLs, gait, transfers CURRENT FUNCTIONAL STATUS: Mable-SBA for transfers; Mable for gait; Yajaira to Mable for ADLs HPI 56 y.o. right handed female admitted secondary to acute onset of worsening right frontal headache and left sided weakness. CT Brain negative; no tPA given. Follow-up Brain MRI also negative. Pt has a history of migraines; ongoing left sided weakness thought to be secondary to complex migraine. Pt denies any chronic medications for treatment of migraines. Also potential of conversion disorder with history of depression. Pt is with slow to improve left sided weakness. Pt is now admitted for aggressive therapies and ongoing medical management. Past History Past Medical History: cancer (lung), other (depression) Past Surgical History: appendectomy, (x4), hysterectomy, tonsillectomy , Other (lung resection, bilateral rotator cuff repair, lumpectomy) Social history: lives with family. denies: smoking (former) Family history: CAD, cancer, diabetes, hypertension, other (TIA) Medications and Allergies Allergies Allergy/AdvReac Type Severity Reaction Status Date / Time iodine Allergy Hives Verified 08/03/13 11:52 azithromycin AdvReac Severe ABDOMINAL Verified 08/03/13 11:52 [From Zithromax Z-Mohit] PAIN Home Medications Medication Instructions Recorded Confirmed Last Taken Type Aspirin [Aspirin TAB] 325 mg PO QDAY #30 tablet 09/20/16 Unknown Rx Butalb/Acetamin/Caff 50-325-40 1 tab PO Q8HR PRN #10 tablet 09/20/16 Unknown Rx [Fioricet] Simvastatin [Zocor TAB] 20 mg PO QHS #30 tablet 09/20/16 Unknown Rx Active Meds: Active Medications Acetaminophen (Tylenol) 650 mg PO Q4H PRN PRN Reason: Pain MILD(1-3)/Fever >100.5/ISSA Acetaminophen/Butalbital/Caffeine (Fioricet) 1 tab PO Q8HR PRN PRN Reason: Headache Aspirin (Aspirin) 325 mg PO QDAY JAN Enoxaparin Sodium (Lovenox) 40 mg SUB-Q QDAY JAN Magnesium Hydroxide (Milk Of Magnesia) 30 ml PO Q4H PRN PRN Reason: Constipation Oxycodone/Acetaminophen (Percocet 5/325) 1 tab PO Q8H PRN PRN Reason: Pain, Moderate (4-6) Senna (Senokot) 8.6 mg PO Q12H PRN PRN Reason: Laxative Effect Simvastatin (Zocor) 20 mg PO QHS JAN Review of Systems All systems: negative Ears, nose, mouth and throat: headache (intermittent) Cardiovascular: lightheadedness, no chest pain Respiratory: no cough, no shortness of breath Gastrointestinal: constipation (reported, however, states had a small bowel movement this AM following several days without), no nausea, no vomiting Genitourinary Female: no dysuria Musculoskeletal: gait dysfunction Neurological: weakness Exam - Constitutional General appearance: no acute distress, obese, other (sitting up in bed, eating dinner) - EENT Eyes: EOM intact ENT: hearing intact - Neck Neck: supple, normal ROM - Respiratory Respiratory effort: normal Respiratory: bilateral: CTA - Cardiovascular Rhythm: regular Heart Sounds: Present: S1 & S2 - Gastrointestinal General gastrointestinal: Present: soft, normal bowel sounds - Integumentary Integumentary: Present: clear - Musculoskeletal Musculoskeletal: left sided weakness (2/5 left extremities; jerky movements at times during strength exam) - Neurologic Neurologic: CNII-XII intact - Psychiatric Psychiatric: appropriate mood/affect, intact judgment & insight, no memory intact (delayed recall at times, word finding difficulty), cooperative Assessment and Plan Assessment and plan: 56 y.o. right handed female with complex migraines with left hemiparesis vs. conversion disorder; noted to have intermittently elevated blood pressure. The patient is medically stable, however, requires ongoing medical management. Pt is appropriate for inpatient rehabilitation admission and is thought to be able to tolerate at least 3 hours of therapy a day, 5 days a week including 1 hour of physical therapy, 1 hour of occupational therapy, and 1 hour of speech therapy. Patient is able to understand and follow basic directions and has attainable rehab goals. Potential barriers/complications include falls, DVT, PE , recurrent UTI, uncontrolled pain/headache, uncontrolled blood pressure, hypotension. Plan 1. Rehabilitation- Pt will undergo multidisciplinary/integrative rehab PT/OT/ ROLL COVERER, Nursing. Areas to be addressed include, but are not limited to PT for mobility, strengthening, transfer training, ROM, endurance, stairs, balance; OT for ADLs, household tasks, adaptive equipment; ROLL COVERER for cognition; Nursing for carryover of therapies, pain control, education, skin integrity, medication management, bowel/bladder management; Nutrition as needed; rn support services for discharge planning and equipment needs. Potential interventions include appropriate assistive device or adaptive equipment. Expected overall level of functional improvement by discharge is Yajaira for gait, transfers, and ADLs. Pt will tentatively be discharged home with outpatient PT/OT. Estimated length of stay is 7-10 days. 2. left hemiparesis secondary to complex migraines vs conversion syndrome- improving; will continue to address weakness, balance, self cares, gait difficulty with PT/OT; continue to treat headache with prn percocet, tylenol. Pt states that Fiorocet keeps her up and is not helpful 3. possible UTI- treated with IV rocephin prior to transfer; will repeat UA, C& S; no urinary symptoms reported 4. constipation- reported by pt, however, +BM on today; states was not a full BM; will add senna 5. DVT px- lovenox - Patient Problems (1) Left hemiparesis Current Visit: No Status: Acute (2) Neurologic gait dysfunction Current Visit: No Status: Acute (3) Constipation by delayed colonic transit Current Visit: Yes Status: Acute
[2016-09-22] MEDS ORDERED: SENOKOT PO SCH (19:00)
[2016-09-22] MEDS: SENOKOT PO SCH (22:22)
[2016-09-22] MEDS: PERCOCET 5/325 PO PRN (22:23)
[2016-09-22] MEDS: COLACE PO SCH (22:23)
[2016-09-22] MEDS: ZOCOR PO SCH (22:23)
[2016-09-23 07:21] LABS: Basophils % (Auto) 0.3 % (0.0-1.8); Eosinophils % (Auto) 2.5 % (0.0-4.3); Hematocrit 34.4 % (30.3-42.9); Hemoglobin 11.5 gm/dl (10.1-14.3); Mean Corpuscular HGB Conc 33 % (30-34); Mean Corpuscular Hemoglobin 28 pg (28-32); Mean Corpuscular Volume 85 fl (79-97); Platelet Count 248 K/mm3 (140-440); Red Blood Count 4.06 M/mm3 (3.65-5.03); Red Cell Distribution Width 13.5 % (13.2-15.2); White Blood Count 8.5 K/mm3 (4.5-11.0)
[2016-09-23 07:33] LABS: Anion Gap 14 mmol/L; Blood Urea Nitrogen 9 mg/dL (7-17); Calcium 8.1 mg/dL (8.4-10.2); Carbon Dioxide 25 mmol/L (22-30); Chloride 103.5 mmol/L (98-107); Glucose 105 mg/dL (65-100); Potassium 3.7 mmol/L (3.6-5.0); Sodium 139 mmol/L (137-145)
[2016-09-23 07:33] LABS: Bacteria,Urine 1+ /HPF (Negative); Bilirubin,Urine NEG (Negative); Blood,Urine MOD (Negative); Ketones,Urine NEG (Negative); Leukocyte Esterase,Urine TR (Negative); Mucus,Urine FEW /HPF; Nitrite,Urine NEG (Negative); Protein,Urine <15 mg/dL mg/dL (Negative); Urobilinogen,Urine < 2.0 mg/dL (<2.0)
[2016-09-23] MEDS ORDERED: LOVENOX SUB-Q SCH (08:00)
[2016-09-23] MEDS: COLACE PO SCH ×2 (09:29→21:21)
[2016-09-23] MEDS: LOVENOX SUB-Q SCH (09:29)
[2016-09-23] MEDS: ASPIRIN PO SCH (09:29)
[2016-09-23] MEDS: SENOKOT PO SCH ×2 (09:31→21:21)
--- NOTE | 2016-09-23 13:43 | Progress Note ---
Assessment and Plan 56 y.o. right handed female with history of migraines, now with improving left hemiparesis due to complex migraines vs. conversion disorder - left hemiparesis secondary to complex migraines vs conversion syndrome- improving left sided weakness, however, with ongoing functional deficits in gait and self cares - possible UTI- F/U urine culture; hold off on any further antibiotics until results available - constipation- senna, colace - HTN- pt is on losartan/HCTZ 100-25 and hydralazine 25mg at home; will restart HCTZ and follow - DVT px- lovenox - Patient Problems (1) Left hemiparesis Current Visit: Yes Status: Acute (2) Neurologic gait dysfunction Current Visit: Yes Status: Acute (3) Constipation by delayed colonic transit Current Visit: Yes Status: Acute (4) Hypertension Current Visit: Yes Status: Acute Qualifiers: Hypertension type: essential hypertension Qualified Code(s): I10 - Essential (primary) hypertension Subjective Date of service: 09/23/16 Principal diagnosis: left hemiparesis secondary to complex migraines vs conversion disorder Interval history: Pt seen in gym on today, F/U, IPR course, left hemiparesis secondary to complex migraines vs conversion disorder. Pt with only mild headache on today; reports some nausea just before lunch. BP noted to be elevated; home meds provided Objective - Constitutional Vitals: Vital Signs - 12hr 09/23/16 07:30 Temperature 97.7 F Pulse Rate [ 80 Left Radial] Respiratory 20 Rate Blood Pressure 144/80 [Left Arm] O2 Sat by Pulse 98 Oximetry General appearance: Present: mild distress (nausea), obese - EENT Eyes: EOM intact ENT: hearing intact - Neck Neck: supple, normal ROM - Respiratory Respiratory effort: normal Respiratory: bilateral: CTA - Cardiovascular Rhythm: regular Heart Sounds: Present: S1 & S2 Extremities: No edema - Gastrointestinal General gastrointestinal: Present: soft, non-tender, non-distended, normal bowel sounds - Integumentary Integumentary: clear - Musculoskeletal Musculoskeletal: left sided weakness - Neurologic Neurologic: CNII-XII intact - Psychiatric Psychiatric: appropriate mood/affect, cooperative - Allied health notes Allied health notes reviewed: OT (supervision to Mable for ADLs; Mable for transfers) - Labs CBC & Chem 7: 09/23/16 06:50 09/23/16 06:50 Labs: Abnormal lab results 09/23/16 09/23/16 Range/Units 06:50 07:00 Creatinine 0.5 L (0.7-1.2) mg/dL Glucose 105 H (65-100) mg/dL Calcium 8.1 L (8.4-10.2) mg/dL Urine WBC (Auto) 8.0 H (0.0-6.0) /HPF
[2016-09-23] MEDS: HCTZ PO SCH (15:32)
[2016-09-23] MEDS ORDERED: APRESOLINE PO PRN (19:44)
[2016-09-23] MEDS: PERCOCET 5/325 PO PRN (20:39)
[2016-09-23] MEDS: ZOCOR PO SCH (20:39)
[2016-09-24] MEDS: LOVENOX SUB-Q SCH ×2 (08:11→10:01)
[2016-09-24] MEDS: COLACE PO SCH ×3 (08:11→22:12)
[2016-09-24] MEDS: ASPIRIN PO SCH (08:12)
[2016-09-24] MEDS: HCTZ PO SCH (08:12)
[2016-09-24] MEDS: COZAAR PO SCH (10:02)
[2016-09-24] MEDS: SENOKOT PO SCH ×2 (10:06→22:12)
--- NOTE | 2016-09-24 13:15 | IRU Plan of Care ---
Interdisciplinary Plan of Care - IP IRU INTERDISCIPLINARY PLAN: [facility] Inpatient Rehab Unit Plan of Care IRU Interdisciplinary Care Plan Start: 09/22/16 17: 50 Freq: Admission then PRN Status: Active Document 09/24/16 09:45 DB (Rec: 09/24/16 09:47 DB [id number]) Interdisciplinary Problem List Interdisciplinary Problem List Interdisciplinary Problem List Impaired Bathing/Grooming Query Text:Answers will Trigger Problems Impaired Dressing and Outcomes on Worklist. Impaired Mobility Impaired Transfers Impaired Toileting Impaired Nutrition Impaired Problem Solving Impaired Memory Pain Management Knowledge Deficits Impaired Home Management Impaired Safety Medications Education IRU Interdisciplinary Care Plan Therapy Services Therapy Services Will Include: Physical Therapy Query Text:Patient will be seen for a Occupational Therapy minimum of 3 hours of daily therapy 5 Speech Therapy out of 7 days a week. Therapy intensity may be adjusted within a 7 consecutive day period to effectively serve the individual needs of the patient. Treatment Frequency/Intensity/Duration Treatment Frequency 5 days per week Treatment Intensity 1 hour per discipline (PT/OT/ [employer]) daily Treatment Duration 7-10 days Problem Area: Eating/Swallowing Eating/Swallowing Outcomes Eating/Swallowing Interventions Problem Area: Bathing/Grooming Bathing/Grooming Outcomes Improve [place] w/ Bathing Bathing/Grooming Interventions ADL Training Use of Assistive Devices Therapeutic Exercise Therapeutic Activity Neuromuscular Re-Education Activity Tolerance Work Patient/Caregiver Education Problem Area: Dressing Dressing Outcomes Improve [place] w/ UB Dressing Improve [place] w/ LB Dressing Dressing Interventions ADL Training Use of Assistive Devices Neuromuscular Re-Education Therapeutic Exercise Balance Work Patient/Caregiver Education Problem Area: Mobility Mobility Outcomes Improve [place] w/ Bed Mobility Improve [place] w/ Ambulation Improve [place] w/ Stairs /Curb Improve [place] w/ Wheelchair Mobility Interventions Therapeutic Exercise Neuromuscular Re-Ed. Modalities Use of Assistive Devices Patient/Caregiver Education Bed Mobility Work Gait Training W/C Mobility Work Problem Area: Transfers Transfers Outcomes Improve [place] w/ Bed Transfers Improve [place] w/ Toilet Transfers Improve [place] w/ Tub/ Shower Transfers Improve [place] w/ Car Transfers Transfers Interventions Transfer Training Therapeutic Exercise Neuromuscular Re-Education Modalities Use of Assistive Devices Patient/Caregiver Education Problem Area: Bowel/Bladder Managment Bowel/Bladder Outcomes Bowel/Bladder Interventions Problem Area: Toileting Toileting Outcomes Improve [place] w/ Toileting Toileting Interventions ADL Training Balance Work Use of Assistive Devices Patient/Caregiver Education Problem Area: Nutrition Nutrition Outcomes Nutrition Interventions Problem Area: Comprehension Comprehension Outcomes Comprehension Interventions Problem Area: Expression Expression Outcomes Expression Interventions Problem Area: Problem Solving Problem Solving Outcomes Improve Problem Solving Problem Solving Interventions Cognitive Training Patient/Caregiver Education Problem Area: Memory Memory Outcomes Use Memory Aids Memory Interventions Cognitive Training Patient/Caregiver Education Problem Area: Pain Management Pain Management Outcomes Demonstrate/Verbalize Pain Strategies Pain Management Interventions Medication Management Positioning/Turning Patient/Caregiver Education Problem Area: Knowledge Deficits Knowledge Deficits Outcomes Verbalize Precautions Knowledge Deficits Interventions Medication Use Education Disease Management Education Health Maintainence Education Safety Education Problem Area: Skin/Tissue Integrity Skin/Tissue Integrity Outcomes Demonstrate Understanding of Pressure Relief Skin/Tissue Integrity Interventions Pressure Relief Instruction Positioning/Turning Problem Area: Social Interaction Social Interaction Outcomes Social Interaction Interventions Problem Area: Adjustment to Disability Adjustment to Disability Outcomes Adjustment to Disability Interventions Problem Area: Discharge Concerns Discharge Concerns Outcomes Discharge Home w/ Necessary Equipment Have Home Health/Outpatient Services Discharge Concerns Interventions Discharge Planning Family/Caregiver Conference Family/Caregiver Training Problem Area: Community Reintegration Community Reintegration Outcomes Demonstrate Understanding of Community Resources Community Reintegration Interventions Provide Community Resources Problem Area: Home Management Home Management Outcomes Improve [place] w/ Home Management Home Management Interventions Meal Preparation Clothing Care Activity Tolerance Work House Cleaning Patient/Caregiver Education Problem Area: Safety Safety Outcomes Provide Safe Environment Safety Interventions Identify Fall Risk [place] Pt. to Environment Reduce Environmental Hazards Problem Area: Medication Education Medication Education Outcomes Patient/Caregiver will Verbalize Understanding of Medications Medication Education Interventions Explain Administration/Side Effects/Interactions Problem Area: Diabetes Education Diabetes Education Outcomes Diabetes Education Interventions Problem Area: Oxygenation Oxygenation Outcomes Oxygenation Interventions Problem Area: Cardiovascular Cardiovascular Outcomes Cardiovascular Interventions Physician Only Medical Prognosis and Rehabilitation Patient demonstrates good Potential (Completed by Physician) rehab potential. Medical Prognosis: Good This plan of care has been developed based on the findings from the pre- admission assessment, post admission physician evaluation, information gathered from the assessments from all therapy disciplines and other pertinent clinicians. The plan of care has been reviewed and discussed in collaboration with the interdisciplinary team. The plan of care will be reviewed and updated at least weekly. 56 y.o. right handed female with left hemiparesis secondary to complex migraines vs conversion syndrome. Pt with elevated blood pressure since admission; confirmed history of HTN and now restarted on home meds. The patient remains at risk for falls, DVT, PE, uncontrolled pain/headache, uncontrolled blood pressure. Will continue to monitor blood pressure closely. Pt is tolerating therapies well; improving left sided weakness. Pt remains an appropriate candidate for IRU admission.
--- NOTE | 2016-09-24 13:20 | Progress Note ---
Assessment and Plan 56 y.o. right handed female with history of migraines, now with improving left hemiparesis due to complex migraines vs. conversion disorder - left hemiparesis secondary to complex migraines vs conversion syndrome- improving left sided weakness - unsteady gait- continue aggressive PT/OT to address balance, strengthening; Mable/CGA for transfers and gait - possible UTI- pending sensitivities on urine culture - constipation- pt refused colace; add lactulose - HTN- HCTZ restarted on yesterday, however, severe HTN on last night; required prn dose of hydralazine. Home dose of losartan restarted this AM; continue to follow closely - DVT px- lovenox - Patient Problems (1) Left hemiparesis Current Visit: Yes Status: Acute (2) Neurologic gait dysfunction Current Visit: Yes Status: Acute (3) Constipation by delayed colonic transit Current Visit: Yes Status: Acute (4) Hypertension Current Visit: Yes Status: Acute Qualifiers: Hypertension type: essential hypertension Qualified Code(s): I10 - Essential (primary) hypertension Subjective Date of service: 09/24/16 Principal diagnosis: left hemiparesis secondary to complex migraines vs conversion disorder Interval history: Pt seen in PT gym this AM, F/U, IPR course, left hemiparesis secondary to complex migraines vs conversion disorder. Elevated BP overnight; hydralazine prn added, losartan also restarted on this morning. Pt is requesting lactulose for bowel management Objective - Constitutional Vitals: Vital Signs - 12hr 09/24/16 09/24/16 07:10 10:02 Temperature 97.8 F Pulse Rate 78 Pulse Rate [ 78 Left Brachial] Respiratory 20 Rate Blood Pressure 144/72 Blood Pressure 144/72 [Right Arm] O2 Sat by Pulse 97 Oximetry General appearance: Present: no acute distress, obese, other (lying on mat) - EENT Eyes: EOM intact ENT: hearing intact - Neck Neck: supple, normal ROM - Respiratory Respiratory effort: normal Extremities: No edema - Gastrointestinal General gastrointestinal: Present: soft, non-tender - Integumentary Integumentary: clear - Musculoskeletal Musculoskeletal: left sided weakness - Neurologic Neurologic: CNII-XII intact - Psychiatric Psychiatric: appropriate mood/affect, cooperative - Allied health notes Allied health notes reviewed: nursing (min-CGA for toileting and toilet transfers; supervision to modA for ADLs), PT (Mable/CGA for transfers and gait) - Labs CBC & Chem 7: 09/23/16 06:50 09/23/16 06:50
[2016-09-24] MEDS ORDERED: CEPHULAC PO PRN (21:00)
[2016-09-24] MEDS: ZOCOR PO SCH (21:11)
[2016-09-25] MEDS: SENOKOT PO SCH ×2 (09:24→09:29)
[2016-09-25] MEDS: COZAAR PO SCH (09:24)
[2016-09-25] MEDS: ASPIRIN PO SCH (09:24)
[2016-09-25] MEDS: LOVENOX SUB-Q SCH (09:25)
[2016-09-25] MEDS: HCTZ PO SCH (09:25)
[2016-09-25] MEDS: COLACE PO SCH ×2 (09:25→09:29)
[2016-09-25] MEDS ORDERED: SENOKOT PO PRN (13:36)
[2016-09-25] MEDS ORDERED: COLACE PO PRN (13:36)
--- NOTE | 2016-09-25 13:39 | Progress Note ---
Assessment and Plan 56 y.o. right handed female with history of migraines, now with improving left hemiparesis due to complex migraines vs. conversion disorder - left hemiparesis secondary to complex migraines vs conversion syndrome- ongoing improvement with left sided weakness; improved functional independence since admission - unsteady gait- pt has progressed to close supervision for ambulation - Enterococcus UTI- start Levaquin, 3 day course - constipation- resolved - HTN- improved BP on losartan/HCTZ - DVT px- lovenox - team conference held on today- pt is Yajaira for grooming, eating and bed mobility; supervision for remaining ADLs, stairs and curb; close supervision for wheelchair mobility and gait, ambulating 340 feet with RW; Yajaira-I for cognition. Tentative d/c date for tomorrow. - Patient Problems (1) Left hemiparesis Current Visit: Yes Status: Acute (2) Neurologic gait dysfunction Current Visit: Yes Status: Acute (3) Hypertension Current Visit: Yes Status: Acute Qualifiers: Hypertension type: essential hypertension Qualified Code(s): I10 - Essential (primary) hypertension (4) Enterococcus UTI Current Visit: Yes Status: Acute Subjective Date of service: 09/25/16 Principal diagnosis: left hemiparesis secondary to complex migraines vs conversion disorder Interval history: Pt seen in room this afternoon, F/U, IPR course, left hemiparesis secondary to complex migraines vs conversion disorder. BP improved over last 24 hours. Pt denies any headache on today; educated on initiation of 3 day course of ABX for enterococcus UTI Objective - Constitutional Vitals: Vital Signs - 12hr 09/25/16 09/25/16 08:05 09:24 Temperature 97.6 F Pulse Rate 95 H Pulse Rate [ 95 H Right Brachial] Respiratory 18 Rate Blood Pressure 151/99 Blood Pressure 151/99 [Right Arm] O2 Sat by Pulse 96 Oximetry General appearance: Present: no acute distress, obese - EENT Eyes: EOM intact ENT: hearing intact - Neck Neck: supple, normal ROM - Respiratory Respiratory effort: normal Extremities: No edema - Gastrointestinal General gastrointestinal: Present: soft, non-tender, non-distended - Integumentary Integumentary: clear - Musculoskeletal Musculoskeletal: left sided weakness - Neurologic Neurologic: CNII-XII intact - Psychiatric Psychiatric: appropriate mood/affect, intact judgment & insight, memory intact, cooperative - Labs CBC & Chem 7: 01/24/17 06:50 09/23/16 06:50
[2016-09-25] MEDS: LEVAQUIN PO SCH (14:37)
[2016-09-25] MEDS: ZOCOR PO SCH (21:56)
[2016-09-26] MEDS: COZAAR PO SCH (09:04)
[2016-09-26] MEDS: HCTZ PO SCH (09:05)
[2016-09-26] MEDS: ASPIRIN PO SCH (09:06)
[2016-09-26] MEDS: LEVAQUIN PO SCH (09:06)
[2016-09-26 09:07] VITALS: BP 157/88
[2016-09-26] MEDS: LOVENOX SUB-Q SCH (09:09)
--- NOTE | 2016-09-26 09:59 | Discharge Summary ---
Providers - Providers Date of Admission: 09/22/16 16:50 Date of discharge: 09/26/16 Attending physician: BRITNEY VITAL 09/22/16 17:53 Occupational Therapy Evaluate and Treat [CONS] Routine Comment: Reason For Exam: complex migraines, left hemiparesis Physical Therapy Evaluation and Treat [CONS] Routine Comment: Reason For Exam: complex migraines, left hemiparesis Speech Therapy Evaluation and Treat [CONS] Routine Reason For Exam: complex migraines, cognitive screening Primary care physician: ELISABETH JOY Hospitalization Reason for admission: left hemiparesis, complex migraines vs conversion d/o Condition: Stable Hospital course: 56 y.o. right handed female admitted secondary to acute onset of left sided weakness and worsening right frontal headache. CT Brain negative; no tPA given. Follow-up Brain MRI also negative. Pt has a history of both migraines and depression; ongoing left sided weakness thought to be secondary to complex migraine. vs conversion disorder. Pt denies any chronic medications for treatment of migraines. Pt admitted to IRU for ongoing medical management and aggressive therapies. IRU course notable for severe hypertension, improved with restarting home meds; constipation, relieved with lactulose; Enterococcus UTI on oral ABX to be completed as outpt; improving left sided weakness and improved functional independence. On admission, pt required min/CGA for bed mobility, transfers, and gait, ambulating 30 feet with RW; s/u-Mable for ADLs. At the time of discharge, pt has improved to Yajaira for transfers, supervision for gait, 340 feet with RW; supervision for curbs and stairs; Yajaira to supervision for ADLs and cognition. Pt is stable for d/c home. >30 mins spent on d/c process, pt education, medication reconciliation Disposition: DISCHARGED TO HOME OR SELFCARE - Discharge Diagnoses (1) Left hemiparesis Status: Acute (2) Neurologic gait dysfunction Status: Acute (3) Hypertension Status: Acute Qualifiers: Hypertension type: essential hypertension Qualified Code(s): I10 - Essential (primary) hypertension (4) Enterococcus UTI Status: Acute Core Measure Documentation - Palliative Care Palliative Care/ Comfort Measures: Not Applicable - Core Measures Any of the following diagnoses?: none Exam - Constitutional Vitals: Temp Pulse Resp BP Pulse Ox 97.9 F 112 H 20 157/88 98 09/26/16 08:00 09/26/16 09:04 09/26/16 08:00 09/26/16 09:04 09/26/16 08:00 General appearance: Present: no acute distress, obese - EENT Eyes: Present: EOM intact ENT: hearing intact - Neck Neck: Present: supple, normal ROM - Respiratory Respiratory effort: normal - Extremities Extremities: No edema - Abdominal General gastrointestinal: Present: soft, non-tender, non-distended - Integumentary Integumentary: Present: clear - Musculoskeletal Musculoskeletal: left sided weakness - Psychiatric Psychiatric: appropriate mood/affect, intact judgment & insight, memory intact, cooperative - Neurologic Neurologic: CNII-XII intact, moves all extremities Plan Activity: no driving until cleared by PCP, fall precautions Weight Bearing Status: Weight Bear as Tolerated Diet: low cholesterol, low salt Special Instructions: physical therapy, occupational therapy, other (outpt therapies- [facility]) Durable Medical Equipment Needed Upon Discharge: Walker-Rolling, Bedside Commode , other (shower chair; [facility]) Follow up with: EILSABETH JOY MD [Primary Care Provider] - 7 Days DEAN HAMM MD [Staff Physician] - 7 Days Prescriptions: Simvastatin [Zocor TAB] 20 mg PO QHS #30 tablet Aspirin [Aspirin TAB] 325 mg PO QDAY #30 tablet Levofloxacin [Levaquin TAB] 250 mg PO Q24HR #1 tablet Losartan/Hydrochlorothiazide [Losartan-Hctz 100-25 mg Tab] 1 each PO QDAY #30 tablet
== END 2016-09-26 20:09 | disposition home or self-care (01) | DRG 103 ==
LOC: 3B 16:50
PROVIDERS: ADMIT Family Medicine; ATTEND Family Medicine
DX: G43.809 Other migraine, not intractable, without status migrainosus (principal); G81.94 Hemiplegia, unspecified affecting left nondominant side; F44.9 Dissociative and conversion disorder, unspecified; I10 Essential (primary) hypertension; F32.9 Major depressive disorder, single episode, unspecified; K59.01 Slow transit constipation; R26.89 Other abnormalities of gait and mobility; N39.0 Urinary tract infection, site not specified; B95.2 Enterococcus as the cause of diseases classified elsewhere; R26.81 Unsteadiness on feet; Z85.118 Personal history of other malignant neoplasm of bronchus and lung; Z90.49 Acquired absence of other specified parts of digestive tract; Z90.710 Acquired absence of both cervix and uterus; Z98.890 Other specified postprocedural states; Z88.1 Allergy status to other antibiotic agents; Z88.8 Allergy status to other drugs, medicaments and biological substances; Z79.82 Long term (current) use of aspirin; Z79.899 Other long term (current) drug therapy; Z87.891 Personal history of nicotine dependence; Z98.891 History of uterine scar from previous surgery; Z82.49 Family history of ischemic heart disease and other diseases of the circulatory system; Z82.3 Family history of stroke; Z83.3 Family history of diabetes mellitus; Z80.9 Family history of malignant neoplasm, unspecified
CPT/HCPCS: 36415; 80048; 81001; 85025; 87086; 87186; J1650

== ENCOUNTER 2017-08-03 07:58 | Outpatient (CLI) | payer MEDICAID ==
--- NOTE | 2017-08-03 11:52 | Cat Scan Report ---
CT NECK WITH CONTRAST: HISTORY: Lung cancer. TECHNIQUE: Helical CT following IV contrast. Sagittal and coronal reformatted images. FINDINGS: The parotid and submandibular glands are normal. The carotid sheaths are intact. There is no evidence of adenopathy within the neck. The thyroid gland is normal. The glottic structures are normal. The airway is patent. Strap musculature is unremarkable. Hyoid bone and thyroid cartilage are intact. Mild cervical spondylosis is noted. IMPRESSION: Unremarkable CT neck.
--- NOTE | 2017-08-03 11:57 | Cat Scan Report ---
CT CHEST WITHOUT CONTRAST: HISTORY: Lung cancer, lymphadenopathy. COMPARISON: 11/01/15. TECHNIQUE: Helical CT in 1.25mm intervals without IV contrast. Sagittal and coronal reformatted images. FINDINGS: Thyroid gland: Normal. Tracheobronchial tree: Normal. Esophagus: Normal. Heart: Normal. Pericardium: Normal. Mediastinum: Normal. Lung [place]: Partial right pneumonectomy changes are suspected. No recurrent lung mass or inflammation. The lungs are clear. Pleural Spaces: Normal. Musculoskeletal: No suspicious bony lesions identified. Slightly prominent bilateral axillary lymph nodes are unchanged in size and number since 11/01/15. The largest lymph node measures 2.1 x 1.2 cm in the right axilla and has normal architecture. IMPRESSION: Stable findings since 11/01/15. Partial right pneumonectomy changes. No recurrent mass or bulky adenopathy is identified. Shotty benign-appearing lymph nodes in both axilla are stable since the comparison exam.
== END 2017-08-03 07:59 | disposition home or self-care (01) ==
LOC: CT 07:58
DX: C34.11 Malignant neoplasm of upper lobe, right bronchus or lung (principal); R59.9 Enlarged lymph nodes, unspecified; M47.892 Other spondylosis, cervical region; Z90.2 Acquired absence of lung [part of]
CPT/HCPCS: 70490; 71250

== ENCOUNTER 2020-09-26 09:39 | Outpatient (CLI) | payer MEDICAID ==
--- NOTE | 2020-09-26 10:53 | XRay Report ---
CHEST 2 VIEWS INDICATION / CLINICAL INFORMATION: PNEUMONIA. COMPARISON: None available. FINDINGS: SUPPORT DEVICES: None. HEART / MEDIASTINUM: No significant abnormality. LUNGS / PLEURA: No significant pulmonary or pleural abnormality. No pneumothorax. ADDITIONAL FINDINGS: No significant additional findings. IMPRESSION: 1. No acute findings. Signer Name: Alec Turner MD Signed: 09/26/2020 10:48 AM Workstation Name: [id number]
== END 2020-09-26 09:40 | disposition home or self-care (01) ==
LOC: XRAY 09:39
PROVIDERS: ATTEND Internal Medicine
DX: R06.09 Other forms of dyspnea (principal); J30.9 Allergic rhinitis, unspecified; K21.9 Gastro-esophageal reflux disease without esophagitis; G47.30 Sleep apnea, unspecified; M19.90 Unspecified osteoarthritis, unspecified site; J32.9 Chronic sinusitis, unspecified
CPT/HCPCS: 71046

== ENCOUNTER 2021-06-04 10:54 | Outpatient (CLI) | payer MEDICAID ==
[2021-06-04 11:37] LABS: Hematocrit 36.5 % (30.3-42.9); Hemoglobin 12.3 gm/dl (10.1-14.3); Mean Corpuscular HGB Conc 34 % (30-34); Mean Corpuscular Volume 83 fl (79-97); Platelet Count 306 K/mm3 (140-440); Red Blood Count 4.38 M/mm3 (3.65-5.03); Red Cell Distribution Width 14.4 % (13.2-15.2)
[2021-06-04 12:00] LABS: Alanine Aminotransferase 12 units/L (7-56); Albumin 4.1 g/dL (3.9-5); BUN/Creatinine Ratio 17; Blood Urea Nitrogen 12 mg/dL (7-17); Calcium 9.5 mg/dL (8.4-10.2); Chol/HDL Ratio 4.48 %; HDL Cholesterol 50 mg/dL (40-59); Hemolysis Index 4; LDL Cholesterol,Direct 169 mg/dL (50-130)
--- NOTE | 2021-06-04 12:50 | XRay Report ---
CHEST 2 VIEWS INDICATION: DYSPNEA. COMPARISON: 09/26/2020 FINDINGS: Support devices: None. Heart: Within normal limits. Lungs/pleura: No acute air space or interstitial disease. No pneumothorax. Additional findings: None. IMPRESSION: No acute findings. Signer Name: Benjamin Huggins Jr, MD Signed: 06/04/2021 12:46 PM Workstation Name: [id number]
--- NOTE | 2021-06-04 18:12 | Cat Scan Report ---
CT CHEST WITHOUT CONTRAST HISTORY: DYSPNEA COMPARISON: Chest CT 08/03/2017. TECHNIQUE: Routine chest CT exam performed without contrast. Lack of intravenous contrast limits ray luation of the vascular and solid organs.. All CT scans at this location are performed using CT dose reduction for ALARA by means of automated exposure control. FINDINGS: CT CHEST: Lungs: Stable postsurgical change from partial right pneumonectomy. No acute pulmonary abnormality. Trachea and Bronchi: No significant abnormality. Heart and Pericardium: Moderately extensive coronary artherosclerotic calcifications Vasculature: Atherosclerotic but not aneurysmal thoracic aorta. Lymphatics: No lymphadenopathy. Osseous Structures: No aggressive appearing osseous lesions. Additional Findings: None IMPRESSION: 1. No acute findings. No adverse change from prior exams. Signer Name: Alec Turner MD Signed: 06/04/2021 6:08 PM Workstation Name: [id number]
== END 2021-06-04 10:55 | disposition home or self-care (01) ==
LOC: CT 10:54
PROVIDERS: ATTEND Internal Medicine
DX: C34.90 Malignant neoplasm of unspecified part of unspecified bronchus or lung (principal); R06.09 Other forms of dyspnea; J32.9 Chronic sinusitis, unspecified; G47.33 Obstructive sleep apnea (adult) (pediatric); K21.9 Gastro-esophageal reflux disease without esophagitis; M19.90 Unspecified osteoarthritis, unspecified site; J30.89 Other allergic rhinitis; I25.10 Atherosclerotic heart disease of native coronary artery without angina pectoris; Z90.2 Acquired absence of lung [part of]
CPT/HCPCS: 36415; 71046; 71250; 80053; 80061; 84436; 84443; 85027